=== PATIENT | male | born 1970 | race Caucasian/White ===

== ENCOUNTER 2021-12-30 01:09 | Day surgery (SDC) | payer BC, SELFPAY ==
[2021-12-23 08:49] VITALS: BMI 27.4
[2021-12-30 08:45] VITALS: BP 130/74; PULSE 63; RESP 16; TEMP 36.6; O2SAT 99
[2021-12-30] MEDS: LACTATED RINGERS 1,000 ML 150 ML IV CONT (08:54)
--- NOTE | 2021-12-30 09:32 | P.PNAN_ITS ---
Anes - Initial Pre Proc Eval Procedure: Operation Date: 12/30/21 09:45 Proposed Procedures p Screening Colonoscopy - Low Harrison DO Date/Time: 12/30/21 09:32 Surgeon: Low Harrison DO Pre Op Diagnosis: neoplasm screening Patient Data Age: 51 Gender: M Height: 1.73 m Weight: 82.1 kg Last Vital Signs Temp 97.8 F 12/30/21 08:45 Pulse 63 12/30/21 08:45 Resp 16 12/30/21 08:45 BP 130/74 12/30/21 08:45 Pulse Ox 99 12/30/21 08:45 O2 Del Method Room Air 12/30/21 08:45 Allergies Allergy/AdvReac Type Severity Reaction Status Date / Time No Known Allergies Allergy Verified 12/30/21 08:43 Home Medications Medication Instructions Recorded Confirmed Type atorvastatin 10 mg tablet 1 tablet PO DAILY 12/22/21 12/30/21 History lisinopril 10 mg tablet 1 tablet PO DAILY 12/22/21 12/30/21 History Lactobacillus 1 cap PO DAILY 12/23/21 12/30/21 History acidophilus-Bifidobac.animalis 2.5 billion cell capsule (Daily Probiotic) htdvhlrq-wda-zfbdp acid 300 1 tablet PO DAILY 12/23/21 12/30/21 History mcg-lycopene 600 mcg-lutein 300 mcg tablet (Centrum Silver Men) Patient hx anesthesia problems: none Family hx anesthesia problems: none Results Review: All pre-operative results and documents have been reviewed as part of the pre- operative evaluation. PENDING SALE TO [facility] Past Medical History Medical History (Updated 12/30/21 @ 09:25 by Emmanuel Avalos MD) Hyperlipidemia Hypertension Social History Social History Smoking status: Never smoker Alcohol intake: current Drinks per week: 14 Alcohol use details: DRINKS Substance use: current Substance use type: marijuana Other substance usage details: OCC. GUMMY Living arrangements: with family Spiritual care concerns: No Anes - Eval Final PreProcedure Day of Procedure 12/30/21 09:32 Patient weight: normal Heart: regular rate and rhythm Lungs: clear to auscultation Airway: Mallampati scale class II Neurological: alert and oriented Last oral intake: >/= 8 hours ASA classification: II Emergent: no Anesthetic plan: proceed Anesthesia type and monitoring: general GIVS and standard monitoring Results Review: All pre-operative results and documents have been reviewed as part of the pre- operative evaluation. Informed Consent: The patient's anesthetic plan and its attendant risks and benefits were discussed with the patient/family/POA. Questions were solicited and answers provided to the satisfaction of the patient/family/POA.
--- NOTE | 2021-12-30 09:37 | PM.IMHP ---
H&P: HPI History of Present Illness Date/Time: 12/30/21 09:37 Chief Complaint: screening for colorectal cancer Narrative: this is a 51-year-old man who presents for his 1st colonoscopy. He denies any hematochezia or melena. He denies any family history of colon cancer. Review of Systems Review of Systems: All systems reviewed & are unremarkable except as noted in HPI and below Constitutional: Constitutional: Denies chills, Denies fever(s), Denies headache(s) and Denies weight loss Eyes: Eyes: Denies change in vision ENT: Denies dizziness, Denies headache(s), Denies neck mass and Denies throat swelling Cardiovascular: Cardiovascular: Denies chest pain, Denies lightheadedness and Denies dyspnea Respiratory: Respiratory: Denies cough, Denies dyspnea and Denies wheezing Gastrointestinal: Gastrointestinal: Denies abdominal pain, Denies change in bowel habits, Denies nausea and Denies vomiting Genitourinary: Genitourinary: Denies hematuria and Denies dysuria Musculoskeletal: Musculoskeletal: Reports as per HPI Integumentary/Breasts: Skin/Breast: Reports as per HPI Neurologic: Denies dizziness and Denies headache(s) Allergic/Immunologic: Allergic/Immunologic: Denies throat swelling and Denies wheezing [facility] Past Medical History Medical History (Updated 12/30/21 @ 09:38 by Low Harrison DO) Hyperlipidemia Hypertension Social History Social History Smoking status: Never smoker Alcohol intake: current Drinks per week: 14 Alcohol use details: DRINKS Substance use: current Substance use type: marijuana Other substance usage details: OCC. GUM Living arrangements: with family Spiritual care concerns: No Meds Home Medications and Allergies Home Medications Medication Instructions Recorded Confirmed Type atorvastatin 10 mg tablet 1 tablet PO DAILY 12/22/21 12/30/21 History lisinopril 10 mg tablet 1 tablet PO DAILY 12/22/21 12/30/21 History Lactobacillus 1 cap PO DAILY 12/23/21 12/30/21 History acidophilus-Bifidobac.animalis 2.5 billion cell capsule (Daily Probiotic) xesqupjc-lqw-pzjzp acid 300 1 tablet PO DAILY 12/23/21 12/30/21 History mcg-lycopene 600 mcg-lutein 300 mcg tablet (Centrum Silver Men) Allergies Allergy/AdvReac Type Severity Reaction Status Date / Time No Known Allergies Allergy Verified 12/30/21 08:43 Vital Signs Vital Signs - 24 hr 12/30/21 08:45 Temperature 36.6 C Pulse Rate 63 Respiratory Rate 16 Blood Pressure 130/74 Pulse Oximetry 99 Oxygen Delivery Room Air Exam Const: General: no acute distress and alert Orientation/consciousness: patient oriented x3 HENMT: Head: normocephalic and atraumatic Ears: hearing grossly normal bilaterally General nose exam: Normal nares present Mouth: Yes Normal oral and palatal mucosa present Eyes: Periorbital: periorbital findings normal Sclera: sclerae normal EOM: EOMs intact bilaterally Neck: Neck: normal visual inspection, no lymphadenopathy and trachea midline Chest: Chest palpation & inspection: normal inspection of the chest Resp: Effort & Inspection: normal respiratory effort Auscultation: clear to auscultation bilaterally Cardio: Jugular venous distension: no JVD Rate: regular rate Rhythm: regular rhythm Heart sounds: S1 normal heart sound present and S2 normal heart sound present Peripheral pulses: Peripheral pulses 2+ throughout GI: Inspection: normal to inspection GI Palp: Yes Soft to palpation, No Tenderness to palpation present (GI), No Guarding due to palpation present (GI) and No Rebound tenderness present Percussion: Yes normal to percussion Auscultation: normal bowel sounds : General: Yes no CVA tenderness Back/Spine/Pelvis: Back: no CVA tenderness Neuro: General: patient oriented x3, no focal motor deficits and CN's II-XI intact bilaterally Cognition (Neuro): normal cognition Speech: normal speech Motor exam (neuro): 5/5 motor strength p
[2021-12-30 10:13] VITALS: BP 102/70; PULSE 69; RESP 19; O2SAT 98
[2021-12-30 10:23] VITALS: BP 118/77; PULSE 72; RESP 30; O2SAT 98
[2021-12-30 10:33] VITALS: BP 120/75; PULSE 64; RESP 17; O2SAT 98
== END 2021-12-30 10:45 | disposition home or self-care (01) ==
PROVIDERS: PCP Internal Medicine; Visit Provider Surgery
PROC: 0DJD8ZZ Inspection of Lower Intestinal Tract, Via Natural or Artificial Opening Endoscopic (ICD-10-PCS; CPT 45378; principal; 2021-12-30 09:45)
DX: Z12.11 Encounter for screening for malignant neoplasm of colon (principal); I10 Essential (primary) hypertension; E78.5 Hyperlipidemia, unspecified; F12.90 Cannabis use, unspecified, uncomplicated
CPT/HCPCS: 45378; J2704; J7120

== ENCOUNTER 2022-05-19 02:03 | Day surgery (SDC) | payer BC, SELFPAY ==
[2022-05-02 14:53] VITALS: BMI 27.4
[2022-05-19 07:53] VITALS: BP 128/80; PULSE 68; RESP 16; TEMP 36.4; O2SAT 99; BMI 28.5
[2022-05-19] MEDS: LACTATED RINGERS 1,000 ML 150 ML IV CONT (08:01)
--- NOTE | 2022-05-19 08:04 | P.PNAN_ITS ---
Anes - Initial Pre Proc Eval Procedure: Operation Date: 05/19/22 08:30 Proposed Procedures p Esophagogastroduodenoscopy EGD - Low Harrison DO Date/Time: 05/19/22 08:04 Surgeon: Low Harrison DO Pre Op Diagnosis: melena, Gerd Patient Data Age: 52 Gender: M Height: 1.73 m Weight: 85.1 kg Last Vital Signs Temp 97.6 F 05/19/22 07:53 Pulse 68 05/19/22 07:53 Resp 16 05/19/22 07:53 BP 128/80 05/19/22 07:53 Pulse Ox 99 05/19/22 07:53 O2 Del Method Room Air 05/19/22 07:53 Allergies Allergy/AdvReac Type Severity Reaction Status Date / Time No Known Allergies Allergy Verified 05/02/22 14:52 Home Medications Medication Instructions Recorded Confirmed Type atorvastatin 10 mg tablet 2 tablet PO DAILY 12/22/21 05/19/22 History lisinopril 10 mg tablet 2 tablet PO DAILY 12/22/21 05/19/22 History Patient hx anesthesia problems: none Family hx anesthesia problems: none Results Review: All pre-operative results and documents have been reviewed as part of the pre- operative evaluation. [facility] Past Medical History Medical History (Updated 12/30/21 @ 09:38 by Low Harrison DO) Hyperlipidemia Hypertension Social History Social History Smoking status: Never smoker Alcohol intake: current Drinks per week: 12 Alcohol use details: DRINKS Substance use: current Substance use type: marijuana Other substance usage details: OCC. GUMMY Living arrangements: with family Spiritual care concerns: No Anes - Eval Final PreProcedure Day of Procedure 05/19/22 08:04 Patient weight: normal Heart: regular rate and rhythm Lungs: clear to auscultation Airway: Mallampati scale class II Neurological: alert and oriented Last oral intake: >/= 8 hours ASA classification: II Emergent: no Anesthetic plan: proceed Anesthesia type and monitoring: general GIVS and standard monitoring Results Review: All pre-operative results and documents have been reviewed as part of the pre- operative evaluation. Informed Consent: The patient's anesthetic plan and its attendant risks and benefits were discussed with the patient/family/POA. Questions were solicited and answers provided to the satisfaction of the patient/family/POA.
[2022-05-19] MEDS: BENZOCAINE (*SP) 60 ML SPRAY CAN (HURRICAINE) 1 SPRAY MUCOUS MEM (08:15)
--- NOTE | 2022-05-19 08:15 | PM.IMHP ---
H&P: HPI History of Present Illness Date/Time: 05/19/22 08:15 Chief Complaint: GERD, melena Narrative: 52 yo man presents for EGD. He had some blood in his stool and occasional heartburn. He drinks alcohol daily but denies smoking or NSAID use. Review of Systems Review of Systems: All systems reviewed & are unremarkable except as noted in HPI and below Constitutional: Constitutional: Denies chills, Denies fever(s), Denies headache(s) and Denies weight loss Eyes: Eyes: Denies change in vision ENT: Denies dizziness, Denies headache(s), Denies neck mass and Denies throat swelling Cardiovascular: Cardiovascular: Denies chest pain, Denies lightheadedness and Denies dyspnea Respiratory: Respiratory: Denies cough, Denies dyspnea and Denies wheezing Gastrointestinal: Gastrointestinal: Denies abdominal pain, Denies change in bowel habits, Denies nausea and Denies vomiting Genitourinary: Genitourinary: Denies hematuria and Denies dysuria Musculoskeletal: Musculoskeletal: Reports as per HPI Integumentary/Breasts: Skin/Breast: Reports as per HPI Neurologic: Denies dizziness and Denies headache(s) Allergic/Immunologic: Allergic/Immunologic: Denies throat swelling and Denies wheezing [facility] Past Medical History Medical History (Updated 05/19/22 @ 08:16 by Low Harrison DO) Hyperlipidemia Hypertension Social History Social History Smoking status: Never smoker Alcohol intake: current Drinks per week: 12 Alcohol use details: DRINKS Substance use: current Substance use type: marijuana Other substance usage details: OCC. [facility] Living arrangements: with family Spiritual care concerns: No Meds Home Medications and Allergies Home Medications Medication Instructions Recorded Confirmed Type atorvastatin 10 mg tablet 2 tablet PO DAILY 12/22/21 05/19/22 History lisinopril 10 mg tablet 2 tablet PO DAILY 12/22/21 05/19/22 History Allergies Allergy/AdvReac Type Severity Reaction Status Date / Time No Known Allergies Allergy Verified 05/02/22 14:52 Vital Signs Vital Signs - 24 hr 05/19/22 07:53 Temperature 36.4 C Pulse Rate 68 Respiratory Rate 16 Blood Pressure 128/80 Pulse Oximetry 99 Oxygen Delivery Room Air Exam Const: General: no acute distress and alert Orientation/consciousness: patient oriented x3 HENMT: Head: normocephalic and atraumatic Ears: hearing grossly normal bilaterally Face/Nose/Sinus: Normal nares present Mouth: Yes Normal oral and palatal mucosa present Eyes: Periorbital: periorbital findings normal Sclera: sclerae normal EOM: EOMs intact bilaterally Neck: Neck: normal visual inspection, no lymphadenopathy and trachea midline Chest: Chest palpation & inspection: normal inspection of the chest Resp: Effort & Inspection: normal respiratory effort Auscultation: clear to auscultation bilaterally Cardio: Jugular venous distension: no JVD Rate: regular rate Rhythm: regular rhythm Heart sounds: S1 normal heart sound present and S2 normal heart sound present Peripheral pulses: Peripheral pulses 2+ throughout GI: Inspection: normal to inspection GI Palp: Yes Soft to palpation, No Tenderness to palpation present (GI), No Guarding due to palpation present (GI) and No Rebound tenderness present Percussion: Yes normal to percussion Auscultation: normal bowel sounds : General: Yes no CVA tenderness Back/Spine/Pelvis: Back: no CVA tenderness Neuro: General: patient oriented x3, no focal motor deficits and CN's II-XI intact bilaterally Cognition (Neuro): normal cognition Speech: normal speech Motor exam (neuro): 5/5 motor strength present throughout Extrem: General: capillary refill normal and no clubbing, cyanosis or edema Assessment and Plan Assessment and plan (1) GERD (gastroesophageal reflux disease): Code(s): K21.9 - Gastro-esophageal reflux disease without esophagitis Status: Acute Assessment and Plan: I hav
[2022-05-19 08:28] VITALS: BP 88/67; PULSE 78; RESP 20; O2SAT 99
[2022-05-19 08:38] VITALS: BP 93/75; PULSE 71; RESP 17; O2SAT 97
[2022-05-19 08:48] VITALS: BP 110/82; PULSE 74; RESP 14; O2SAT 99
== END 2022-05-19 08:52 | disposition home or self-care (01) ==
PROVIDERS: PCP Internal Medicine; Visit Provider Surgery
PROC: 0DJ08ZZ Inspection of Upper Intestinal Tract, Via Natural or Artificial Opening Endoscopic (ICD-10-PCS; CPT 43235; principal; 2022-05-19 08:30)
DX: K29.00 Acute gastritis without bleeding (principal); K44.9 Diaphragmatic hernia without obstruction or gangrene; K21.9 Gastro-esophageal reflux disease without esophagitis; I10 Essential (primary) hypertension; E78.5 Hyperlipidemia, unspecified; F12.90 Cannabis use, unspecified, uncomplicated
CPT/HCPCS: 43239; 87081; 88305; J2704; J7120

== ENCOUNTER 2024-04-04 09:00 | Outpatient (CLI) | payer BC, SELFPAY ==
--- NOTE | ~2024-04-04 | CT_ITS ---
EXAMINATION: CT abdomen pelvis w con DATE: 04/04/2024 09:32 INDICATION: Melanoma. Abdominal pain. Pelvic cramping. TECHNIQUE: Computed tomography (CT) of the abdomen and pelvis was performed with 100 mL Omnipaque-350 intravenous contrast. Automated exposure control and iterative reconstruction technique were employe d. The dose-length product was 463.71 mGy-cm. COMPARISON: None FINDINGS: Lung bases are clear. Heart size normal. No pericardial or pleural effusion. There is a coarsened arturo earance to the enhancement/attenuation of the liver suggestion of subtle liver surface nodularity martha picious for cirrhosis. Gallbladder, spleen, pancreas, bilateral adrenal glands and kidneys are normal . Bladder is normal. Bowels including the appendix are normal. No free intraperitoneal gas or fluid. No pathologically enlarged abdominal or pelvic lymphadenopathy. Mild lumbar and lower thoracic spondy losis. IMPRESSION: 1. Coarsened attenuation/enhancement pattern of the liver with suggestion of subtle liver surface nod ularity suspicious for cirrhosis. No acute intra-abdominal/pelvic process. Reviewed, dictated and finalized at location A. IMPRESSION: 1. Coarsened attenuation/enhancement pattern of the liver with suggestion of beckford btle liver surface nodularity suspicious for cirrhosis. No acute intra-abdomina l/pelvic process.
== END 2024-04-04 09:01 | disposition home or self-care (01) ==
PROVIDERS: PCP Internal Medicine; Visit Provider Internal Medicine
DX: R10.9 Unspecified abdominal pain (principal); R93.2 Abnormal findings on diagnostic imaging of liver and biliary tract
CPT/HCPCS: 74177; Q9967

== ENCOUNTER 2024-05-28 11:11 | Outpatient (CLI) | payer BC, SELFPAY ==
[2024-05-28 11:35] LABS: Add Urine Microscopic? NO; Appearance Urine Clear (Clear); Bilirubin Urine Negative (Negative); Blood Urine Negative (Negative); Color Urine Light Yellow (Yellow); Glucose Urine UA Negative (Negative); Ketones Urine Negative (Negative); Leukocyte Esterase Ur Negative (Negative); Nitrate Urine Negative (Negative); Protein Urine Negative (Negative); Urobilinogen Urine 0.2 mg/dL (0.2-1.0)
[2024-05-28 12:19] LABS: Anion Gap 8 mmol/L (4-12); Blood Urea Nitrogen 22 mg/dL (7-18); Calcium 10.2 mg/dL (8.5-10.1); Carbon Dioxide 27 mmol/L (21-32); Chloride 106 mmol/L (98-108); Estimated Glomerular Filt Rate 38; Glucose 102 mg/dL (70-99); Osmolality Calculated 295 mOsm/kg (285-295); Potassium 5.1 mmol/L (3.5-5.1); Sodium 141 mmol/L (136-145)
== END 2024-05-28 11:12 | disposition home or self-care (01) ==
PROVIDERS: PCP Internal Medicine; Visit Provider Internal Medicine
DX: I10 Essential (primary) hypertension (principal)
CPT/HCPCS: 36415; 80048; 81003

== ENCOUNTER 2024-06-03 12:35 | Outpatient (CLI) | payer BC, SELFPAY ==
[2024-06-03 13:17] LABS: Alanine Aminotransferase 69 U/L (16-63); Albumin Level 3.5 g/dL (3.4-5.0); Alkaline Phosphatase 83 U/L (46-116); Anion Gap 10 mmol/L (4-12); Aspartate Amino Transferase 62 U/L (15-37); Bilirubin,Total 0.9 mg/dL (0.00-1.00); Blood Urea Nitrogen 14 mg/dL (7-18); Calcium 8.8 mg/dL (8.5-10.1); Carbon Dioxide 27 mmol/L (21-32); Chloride 103 mmol/L (98-108); Estimated Glomerular Filt Rate > 60; Glucose 138 mg/dL (70-99); Osmolality Calculated 292 mOsm/kg (285-295); Potassium 4.1 mmol/L (3.5-5.1); Sodium 140 mmol/L (136-145); Total Protein 6.6 g/dL (6.4-8.2)
== END 2024-06-03 12:36 | disposition home or self-care (01) ==
PROVIDERS: PCP Family Medicine; Visit Provider Family Medicine
DX: I10 Essential (primary) hypertension (principal); E11.9 Type 2 diabetes mellitus without complications
CPT/HCPCS: 36415; 80053